=== PATIENT | female | born 2000 | race Caucasian/White ===

== ENCOUNTER 2023-04-15 00:29 | Emergency (ER) | payer OTHER, SELFPAY ==
[2023-04-15 00:37] VITALS: BP 81/63; PULSE 64; RESP 16; TEMP 36.5; O2SAT 96; BMI 45.2
--- NOTE | 2023-04-15 00:56 | ED_ITS ---
HPI - Female Genitourinary General Chief complaint: Urogenital-Female Stated complaint: ABD PAIN Time Seen by Provider: 04/15/23 00:53 Source: patient Mode of arrival: ambulance Limitations: no limitations History of Present Illness HPI Narrative: past history of kidney infection. mild discomfort past couple of days and today bilat lower back pain. She is concern she has another kidney infection. Denies abdominal pain or nausea or fever. Not sure if she is Related Data Home Medications Medication Instructions Recorded Confirmed aripiprazole 400 mg suspension, 400 mg IM Q28D 04/15/23 04/15/23 extended rel.intramuscular syringe (Demisameera Ho) propranolol 10 mg tablet 10 mg PO DAILY 04/15/23 04/15/23 Allergies Allergy/AdvReac Type Severity Reaction Status Date / Time No Known Drug Allergies Allergy Verified 04/15/23 00:41 Review of Systems ROS Status of ROS 10 or more systems reviewed and unremarkable except as noted in history and below PFSH PFSH Social History Smoking status: Current some day smoker Exam Constitutional Vital Signs, click to edit/add: Last Vital Signs Temp 97.7 F 04/15/23 00:37 Pulse 64 04/15/23 00:37 Resp 16 04/15/23 00:37 BP 81/63 L 04/15/23 00:37 Pulse Ox 96 04/15/23 00:37 O2 Del Method Room Air 04/15/23 00:37 Common normals: no apparent distress, average body habitus, oriented x3, no limitations, healthy appearing, alert and well nourished Eye Common normals: EOMs intact bilaterally and conjunctivae normal Respiratory Common normals: normal respiratory effort, no retractions and no use of accessory muscles Cardio Common normals: regular rate, regular rhythm, S1 normal heart sound and S2 normal heart sound GI Common normals: Normal to inspection, nondistended, normoactive bowel sounds present, soft to palpation and non-tender Back & Pelvis Common normals: no CVA tenderness Extremity Common normals: normal to inspection Neuro Common normals: oriented x3, CN's II-XII intact bilaterally, moves all extrem ities and no focal motor deficits Psych Appearance: grossly normal Course Vital Signs Vital signs: Vital Signs Temperature 97.7 F 04/15/23 00:37 Pulse Rate 64 04/15/23 00:37 Respiratory Rate 16 04/15/23 00:37 Blood Pressure 81/63 L 04/15/23 00:37 Pulse Oximetry 96 04/15/23 00:37 Oxygen Delivery Method Room Air 04/15/23 00:37 Temperature 97.7 F 04/15/23 00:37 Pulse Rate 64 04/15/23 00:37 Respiratory Rate 16 04/15/23 00:37 Blood Pressure 81/63 L 04/15/23 00:37 Pulse Oximetry 96 04/15/23 00:37 Oxygen Delivery Method Room Air 04/15/23 00:37 MDM - Female Genitourinary MDM Narrative Medical decision making narrative: presents with lower back pain concerned she may have a kidney infection. UA contaminated and still only demonstrated 2-5 WBC. CBC WNL. Patient informed there is no evidence at this time supporting diagnosis of kidney infection. plan discharge home to follow up with the family physician Lab Data Labs: Lab Results 04/15/23 04/15/23 04/15/23 Range/Units 01:00 01:33 01:40 WBC 8.7 (4.0-11.0) 10^3/uL RBC 4.90 (4.20-5.40) 10^6/uL Hgb 13.0 (12.0-16.0) g/dL Hct 41.6 (36.0-48.0) % MCV 84.9 (81.0-99.0) fL MCH 26.5 L (26.7-34.0) pg MCHC 31.3 (29.9-35.2) g/dL RDW 13.1 (11.0-15.0) % Plt Count 212 (150-450) 10^3/uL MPV 10.7 (9.5-13.5) fL Neut % (Auto) 40.3 L (43.0-75.0) % Lymph % (Auto) 48.5 (20.5-60.0) % Dickinson % (Auto) 7.2 (1.7-12.0) % Eos % (Auto) 3.3 (0.9-7.0) % Baso % (Auto) 0.5 (0.2-2.0) % Neut # (Auto) 3.5 (1.4-6.5) 10^3/uL Lymph # (Auto) 4.2 H (1.2-3.8) 10^3/uL Dickinson # (Auto) 0.6 (0.3-0.8) 10^3/uL Eos # (Auto) 0.3 (0.0-0.7) 10^3/uL Baso # (Auto) 0.0 (0.0-0.1) 10^3/uL Abs Immat Gran (auto) 0.02 (0.00-0.03) 10^3/uL Imm/Tot Granulo (auto) 0.2 (0.0-0.5) % Sodium 139 (136-145) mmol/L Potassium 3.4 L (3.5-5.1) mmol/L Chloride 103 (98-107) mmol/L Carbon Dioxide 27.8 (21.0-32.0) mmol/L Anion Gap 11.6 BUN 10.0 (7.0-18.0) mg/dL Creatinine 0.81 (0.55-1.02) mg/dL Est GFR ( Amer) >60 (>=60) Est GFR (Non-Af Amer) >60 (>=60) BUN/Creatinine Ratio 12.3 Glucose 101 (74-106) mg/dL Calcium 9.2 (8.5-10.1) mg/dL Urine Color Lt. yellow (YELLOW) Urine Clarity Clear (CLEAR) Urine pH 5.5 (5.0-9.0) Ur Specific [place] 1.010 (1.005-1.025) Urine Protein Negative (NEG/TRACE) mg/dL Urine Glucose (UA) Negative (NEGATIVE) mg/dL Urine Ketones Negative (NEGATIVE) mg/dL Urine Occult Blood Negative (NEGATIVE) Urine Nitrite Negative (NEGATIVE) Urine Bilirubin Negative (NEGATIVE) Urine Urobilinogen 0.2 (0.2-1.0) EU/dL Ur Leukocyte Esterase Small A (NEGATIVE) Urine RBC None seen (0-2) #/HPF Urine WBC 2-5 A (NONE SEEN) #/HPF Ur Squamous Epith Cells Many A (NONE/RARE) #/LPF Urine Crystals None seen (None Seen) #/HPF Urine Bacteria Trace A (NONE SEEN) #/HPF Urine Casts None seen (NONE SEEN) #/LPF Urine Mucus None seen (NONE SEEN) Urine HCG, Qual Negative (NEGATIVE) Discharge Plan Discharge Chief Complaint: Urogenital-Female Clinical Impression: Back pain Patient Disposition: Home, Self-Care Prescriptions / Home Meds: No Action propranolol 10 mg tablet 10 mg PO DAILY Abilify Maintena 400 mg suspension,extended rel syring 400 mg IM Q28D Instructions: Acute Low Back Pain (ED) Stand Alone Forms: Portal Instructions Referrals: Physician,Non-Staff, MD [Primary Care Provider] - 1 week
[2023-04-15 01:53] LABS: Bilirubin Urine NEGATIVE (NEGATIVE); Blood Urine NEGATIVE (NEGATIVE); Clarity Urine CLEAR (CLEAR); Color Urine LT. YELLOW (YELLOW); Glucose Urine UA NEGATIVE (NEGATIVE); Ketones Urine NEGATIVE (NEGATIVE); Leukocyte Esterase Urine SMALL (NEGATIVE); Nitrite Urine NEGATIVE (NEGATIVE); Protein Urine NEGATIVE (NEG/TRACE); Urobilinogen Urine 0.2 EU/dL (0.2-1.0); pH Urine 5.5 (5.0-9.0)
[2023-04-15 01:54] LABS: Basophils Percent Auto 0.5 % (0.2-2.0); Eosinophils Absolute Auto 0.3 10^3/uL (0.0-0.7); Eosinophils Percent Auto 3.3 % (0.9-7.0); Hematocrit 41.6 % (36.0-48.0); Immature Granulocytes Abs Auto 0.02 10^3/uL (0.00-0.03); Immature Granulocytes Pct Auto 0.2 % (0.0-0.5); Lymphocytes Absolute Auto 4.2 10^3/uL (1.2-3.8); Lymphocytes Percent Auto 48.5 % (20.5-60.0); Mean Corpuscular HGB Conc 31.3 g/dL (29.9-35.2); Mean Corpuscular Hemoglobin 26.5 pg (26.7-34.0); Mean Corpuscular Volume 84.9 fL (81.0-99.0); Mean Platelet Volume 10.7 fL (9.5-13.5); Monocytes Absolute Auto 0.6 10^3/uL (0.3-0.8); Monocytes Percent Auto 7.2 % (1.7-12.0); Neutrophils Absolute Auto 3.5 10^3/uL (1.4-6.5); Neutrophils Percent Auto 40.3 % (43.0-75.0); Platelet Count 212 10^3/uL (150-450); Red Cell Distribution Width 13.1 % (11.0-15.0); White Blood Count 8.7 10^3/uL (4.0-11.0)
[2023-04-15 01:57] LABS: HCG Qualitative Urine* NEGATIVE (NEGATIVE)
[2023-04-15 01:58] LABS: Urine Microscopic Indicated YES
[2023-04-15 02:01] LABS: Anion Gap 11.6; BUN Creatinine Ratio 12.3; Calcium 9.2 mg/dL (8.5-10.1); Carbon Dioxide 27.8 mmol/L (21.0-32.0); Chloride 103 mmol/L (98-107); Estimated GFR (African America >60 (>=60); Estimated GFR (Non-African Ame >60 (>=60); Glucose 101 mg/dL (74-106); Potassium 3.4 mmol/L (3.5-5.1); Sodium 139 mmol/L (136-145)
[2023-04-15 02:08] LABS: Bacteria Urine TRACE #/HPF (NONE SEEN); Cast Seen? NONE SEEN #/LPF (NONE SEEN); Crystals Seen? None Seen #/HPF (None Seen); Mucus Urine NONE SEEN (NONE SEEN); RBC Urine NONE SEEN #/HPF (0-2); Squamous Epithelial Cell Urine MANY #/LPF (NONE/RARE)
[2023-04-15 02:25] VITALS: BP 88/39
== END 2023-04-15 02:25 | disposition home or self-care (01) ==
PROVIDERS: Emergency Provider Internal Medicine; Family Provider Pediatrics
DX: M54.50 Low back pain, unspecified (principal); Z79.899 Other long term (current) drug therapy; F17.210 Nicotine dependence, cigarettes, uncomplicated; Z87.440 Personal history of urinary (tract) infections
CPT/HCPCS: 36415; 80048; 81001; 84703; 85025; 99283